=== PATIENT | female | born 1995 | race Caucasian/White ===

== ENCOUNTER 2017-03-22 16:27 | Emergency (ER) | payer SELFPAY ==
[2017-03-22 17:50] VITALS: BP 125/79
== END 2017-03-22 17:50 | disposition home or self-care (01) ==
LOC: ED 16:27
DX: R11.2 Nausea with vomiting, unspecified (principal); R10.10 Upper abdominal pain, unspecified; R19.7 Diarrhea, unspecified; R51 Headache; Z90.89 Acquired absence of other organs

== ENCOUNTER 2019-01-15 13:29 | Emergency (ER) | payer MEDICAID ==
[~2019-01-15] VITALS: Ht 152.4 cm; Wt 61.2 kg
[2019-01-15 13:41] VITALS: Ht 152.4 cm; Wt 61.2 kg
[2019-01-15 14:15] LABS: PLATELET COUNT 239 x10^3mcL (130-400); RED CELL DISTRIBUTION WIDTH 13.5 % (11.5-14.5)
[2019-01-15 14:30] LABS: CALCIUM 8.6 mg/dL (8.5-10.1); CARBON DIOXIDE 25.4 mmol/L (21-32); CHLORIDE SERUM 107 mmol/L (98-107); CREATININE SERUM 0.8 mg/dL (0.6-1.0); GFR1 > 60 mL/min; GLUCOSE SERUM 110 mg/dL (74-106); POTASSIUM SERUM 4.6 mmol/L (3.5-5.1); SODIUM SERUM 144 mmol/L (136-145)
[2019-01-15 14:35] LABS: ALBUMIN 3.6 g/dL (3.4-5.0); ALKALINE PHOSPHATASE 77 U/L (46-116); ALT/SGPT 20 U/L (14-59); AST/SGOT 14 U/L (15-37); BILIRUBIN TOTAL 0.35 mg/dL (0.20-1.00); TOTAL PROTEIN, SERUM 7.5 g/dL (6.4-8.2)
[2019-01-15 14:43] LABS: AMPHETAMINE QUAL UR NONE DETECTED (See below)
[2019-01-15 15:41] VITALS: BP 119/67
== END 2019-01-15 15:41 | disposition home or self-care (01) ==
LOC: ED 13:29
PROVIDERS: Emergency Medicine
DX: R07.89 Other chest pain (principal); N39.0 Urinary tract infection, site not specified
CPT/HCPCS: 36415; 85378; J7030; Q0092